=== PATIENT | male | born 1990 | race Caucasian/White ===

== ENCOUNTER 2019-11-30 08:33 | Outpatient (CLI) | payer OTHER | END 2019-11-30 08:42 | disposition home or self-care (01) | LOC: LAB 08:33 | DX: D50.8 Other iron deficiency anemias (principal); I10 Essential (primary) hypertension; D55.0 Anemia due to glucose-6-phosphate dehydrogenase [G6PD] deficiency; D51.1 Vitamin B12 deficiency anemia due to selective vitamin B12 malabsorption with proteinuria; D51.0 Vitamin B12 deficiency anemia due to intrinsic factor deficiency; E03.8 Other specified hypothyroidism; E06.3 Autoimmune thyroiditis; D51.3 Other dietary vitamin B12 deficiency anemia; G35 Multiple sclerosis ==

== ENCOUNTER 2019-11-30 10:22 | Outpatient (CLI) | payer OTHER | END 2019-11-30 10:33 | disposition home or self-care (01) | LOC: SONOGRAMA 10:22 | DX: D51.3 Other dietary vitamin B12 deficiency anemia (principal); G35 Multiple sclerosis; E03.8 Other specified hypothyroidism; R94.5 Abnormal results of liver function studies; E04.2 Nontoxic multinodular goiter ==